=== PATIENT | female | born 1945 | race Caucasian/White ===

== ENCOUNTER → 2016-07-02 | Outpatient (REF) | LOC: ZLAB.WCH 14:43 | DX: Z01.89 Encounter for other specified special examinations (principal) ==

== ENCOUNTER → 2016-09-20 | Outpatient (REF) | LOC: ZLAB.STJ 09:07 | DX: Z01.89 Encounter for other specified special examinations (principal) ==

== ENCOUNTER → 2016-09-22 | Outpatient (REF) | LOC: ZLAB.WCH 11:14 | DX: Z01.89 Encounter for other specified special examinations (principal) ==

== ENCOUNTER → 2017-06-25 | Outpatient (REF) ==
[2017-06-25 18:36] LABS: C-REACTIVE PROTEIN 1.1 mg/dL (0.0-0.9)
[2017-06-25 19:04] LABS: THYROID STIMULATING HORMONE 0.629 uIU/mL (0.465-4.680)
== END ==
LOC: ZLAB.WCH 18:04
PROVIDERS: Family Medicine
DX: Z01.89 Encounter for other specified special examinations (principal)

== ENCOUNTER → 2017-11-25 | Outpatient (REF) | LOC: ZLAB.WCH 18:16 | DX: Z01.89 Encounter for other specified special examinations (principal) ==

== ENCOUNTER → 2018-02-18 | Outpatient (REF) | LOC: ZLAB.WCH 16:56 | DX: Z01.89 Encounter for other specified special examinations (principal) ==